=== PATIENT | male | born 1990 | race African-American/Black ===

== ENCOUNTER 2022-02-25 23:24 | Emergency (ER) | payer SELFPAY ==
[~2022-02-25] VITALS: Ht 177.8 cm; Wt 86.0 kg
[2022-02-25 23:29] VITALS: BP 119/74
== END 2022-02-26 02:09 | disposition left against medical advice (07) ==
LOC: ER 23:24
DX: Z53.21 Procedure and treatment not carried out due to patient leaving prior to being seen by health care provider (principal)
CPT/HCPCS: 82962; 93005